=== PATIENT | female | born 1960 | race Caucasian/White ===

== ENCOUNTER 2018-02-22 18:36 | Emergency (ER) | payer OTHER | END 2018-02-22 20:30 | disposition left against medical advice (07) | LOC: M ED 18:36 | DX: Z53.29 Procedure and treatment not carried out because of patient's decision for other reasons (principal) ==

== ENCOUNTER → 2018-04-01 | Outpatient (CLI) | payer OTHER | LOC: M RAD 10:24 | DX: Z12.2 Encounter for screening for malignant neoplasm of respiratory organs (principal); Z87.891 Personal history of nicotine dependence | CPT/HCPCS: G0297 ==

== ENCOUNTER → 2018-12-20 | Outpatient (CLI) | payer MEDICARE, MEDICAID ==
[~2018-12-20] MED LIST: ALBU83IN; ATOR1TAB21; BREO1INH3; CART120C; HYDR12CA; OMEP40CA2
== END ==
LOC: M SLEEP HO 12:57
PROVIDERS: ATTEND Physician Assistant
DX: R06.83 Snoring (principal); R40.0 Somnolence

== ENCOUNTER → 2019-02-01 | Outpatient (CLI) | payer MEDICARE, MEDICAID ==
--- NOTE | 2019-02-04 07:12 | SLEEPCENT ---
DATE OF PROCEDURE: 02/01/2019 ORDERED BY: David Wasserman Nocturnal polysomnography was performed for evaluation of sleep physiology in this patient with a history of excessive somnolence and an inconclusive home test. She has comorbidities of hypertension and acid reflux disease. 7 hours and 38 minutes of data were reviewed. There were 378 minutes of sleep identified. Sleep latency was mildly prolonged at 25 minutes. Rapid eye movement (REM) sleep was delayed at 208 minutes. Sleep architecture was fair with 2 REM cycles noted. There were some periods of wake later in the study. Overall sleep efficiency was 83.7%. The electrocardiogram showed a sinus rhythm with an average heart rate of 90 beats per minute. Electroencephalogram (EEG) showed significant coarsening in the background. No focal events were seen and there were normal waveforms for wake and sleep stages. There were only 18 respiratory events identified of 10 seconds in duration or greater for an apnea-hypopnea index of 2.9. Snoring was noted, but the overall respiratory related arousal index was only 1.6. There were no oxygen desaturations. There was some limb activity, but no trains of events. Limb movement arousal index was borderline at 5.9. IMPRESSION: Normal nocturnal polysomnography with snoring.
== END ==
LOC: M SLEEP 20:00
PROVIDERS: ATTEND Physician Assistant
DX: R06.83 Snoring (principal)

== ENCOUNTER → 2019-07-31 | Outpatient (CLI) | payer MEDICARE, MEDICAID ==
--- NOTE | 2019-07-31 16:10 | REP ---
REASON: Tobacco abuse. COMPARISON: Multiple, the latest 04/01/2018. As per the protocol only lung window images were sent to the read station for interpretation. There is biapical pleural parenchymal scarring right greater than left and stable from 09/13/2017. There are no new abnormal nodules, masses, or opacities. Grossly the mediastinum and pulmonary royce are stable. Grossly the imaged upper abdomen and imaged osseous structures are stable. IMPRESSION:Stable chronic biapical changes as described above. There is no revised Fleischner's Society Criteria on the recommendation for followup of such findings. LUNG RADS [address] is recommended. Electronically Signed by Job Smith DO 07/31/2019 04:44 P
== END ==
LOC: M RAD 13:16
PROVIDERS: ATTEND Physician Assistant Medical
DX: Z12.2 Encounter for screening for malignant neoplasm of respiratory organs (principal); Z87.891 Personal history of nicotine dependence; J98.4 Other disorders of lung

== ENCOUNTER → 2021-04-18 | Outpatient (CLI) | payer MEDICARE, MEDICAID ==
[~2021-04-18] MED LIST changes: -OMEP40CA2; +OMEP40CA4
--- NOTE | 2021-04-18 11:31 | REP ---
INDICATION: NICOTINE DEPENDENCE. COMPARISON: Comparison CT studies of the chest are from 31 July 2019, 01 April 2018, 13 September 2017, and 12 September 2016.. TECHNIQUE: Dose reduction was performed utilizing CARE dose with automated adjustment of the kV and MAS according to patient size; iterative reconstruction, automated exposure control, as well as adaptive dose shielding. Helical scanning is acquired and 3 mm axial images are generated at lung window settings. 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 There are clips in the right upper quadrant. The right breast is surgically absent. There is no evidence of pleural effusion. Some vascular calcification is seen. Mild biapical pleuroparenchymal fibrosis is again seen right more so than left unchanged from prior studies. No pulmonary nodule or mass lesion is seen. No new infiltrate is noted. No endobronchial disease is appreciated. IMPRESSION: Lung RADS category 1 findings. Repeat screening exam suggested in 1 year <Electronically signed by Pedro Babcock > 04/18/21 1124
== END ==
LOC: M RAD 10:09
PROVIDERS: ATTEND Physician Assistant Medical
DX: Z12.2 Encounter for screening for malignant neoplasm of respiratory organs (principal); F17.210 Nicotine dependence, cigarettes, uncomplicated

== ENCOUNTER → 2022-12-11 | Outpatient (CLI) | payer MEDICARE, MEDICAID ==
[~2022-12-11] MED LIST changes: +ALBU2.5V10; -ALBU83IN
[2022-12-11 10:41] LABS: HEMATOCRIT 40.4 % (36.0-47.0); HEMOGLOBIN 13.3 g/dl (12.0-15.5); MEAN CORPUSCULAR HEMOGLOBIN 30.4 pg (27.0-33.0); MEAN CORPUSCULAR HGB CONC 32.9 g/dl (32.0-36.5); MEAN CORPUSCULAR VOLUME 92.4 fl (80.0-96.0); PLATELET COUNT, AUTOMATED 213 10^3/uL (150-450); RED BLOOD COUNT 4.37 10^6/uL (4.00-5.40); WHITE BLOOD COUNT 11.4 10^3/uL (4.0-10.0)
[2022-12-11 10:58] LABS: HEMOGLOBIN A1c 6.7 % (4.0-6.0)
[2022-12-11 11:13] LABS: CREATININE, URINE 150.2 MG/DL; MAU/CREAT RATIO 35.2 MCG/MG (0.0-30.0)
[2022-12-11 11:15] LABS: THYROID STIMULATING HORMONE 1.529 uIU/ML (0.55-4.78); TOTAL 25(OH) VITAMIN D 15.3 NG/ML (20.0-100.0)
[2022-12-11 11:16] LABS: FREE T4 1.12 NG/DL (0.89-1.76)
[2022-12-11 11:17] LABS: ALBUMIN 3.5 G/DL (3.2-5.2); ALKALINE PHOSPHATASE 98 U/L (46-116); ALT/SGPT 23 U/L (7.0-40); AST/SGOT < 8 U/L (<34); BILIRUBIN,TOTAL 1.1 MG/DL (0.3-1.2); BLOOD UREA NITROGEN 12 MG/DL (9-23); CALCIUM LEVEL 8.7 MG/DL (8.3-10.6); CARBON DIOXIDE LEVEL 24 MMOL/L (20-31); CHLORIDE LEVEL 111 MMOL/L (98-107); CHOLESTEROL LEVEL 167 MG/DL (<200); CHOLESTEROL RISK RATIO 3.48 (<5); CREATININE FOR GFR 0.59 MG/DL (0.55-1.30); GLOMERULAR FILTRATION RATE > 60.0 (>45); GLUCOSE, FASTING 109 MG/DL (74-106); HDL CHOLESTEROL 47.9 MG/DL (>40); LDL CHOLESTEROL 92.1 MG/DL (<100); NON-HDL-C 119 MG/DL; POTASSIUM SERUM 3.9 MMOL/L (3.5-5.1); SODIUM LEVEL 142 MMOL/L (136-145); TRIGLYCERIDES LEVEL 135 MG/DL (<150)
[2022-12-11 11:18] LABS: VITAMIN B12 LEVEL 259 PG/ML (211-911)
== END ==
LOC: M PLALAB 09:01
PROVIDERS: ATTEND Internal Medicine Hematology
DX: R91.8 Other nonspecific abnormal finding of lung field (principal); I25.10 Atherosclerotic heart disease of native coronary artery without angina pectoris; Z87.891 Personal history of nicotine dependence; Z79.899 Other long term (current) drug therapy

== ENCOUNTER → 2023-01-15 | Outpatient (CLI) | payer MEDICARE, MEDICAID | LOC: M WHC 16:20 | PROVIDERS: ATTEND Internal Medicine Hematology | DX: Z12.31 Encounter for screening mammogram for malignant neoplasm of breast (principal); Z85.3 Personal history of malignant neoplasm of breast; Z90.11 Acquired absence of right breast and nipple ==

== ENCOUNTER → 2023-03-02 | Outpatient (CLI) | payer MEDICARE, MEDICAID | LOC: M CARPUL 14:25 | PROVIDERS: ATTEND Internal Medicine Hematology | DX: I50.42 Chronic combined systolic (congestive) and diastolic (congestive) heart failure (principal) ==

== ENCOUNTER → 2023-05-11 | Outpatient (CLI) | payer MEDICARE, MEDICAID ==
[2023-05-11 14:23] LABS: BLOOD UREA NITROGEN 16 MG/DL (9-23); CARBON DIOXIDE LEVEL 27 MMOL/L (20-31); CHLORIDE LEVEL 106 MMOL/L (98-107); CREATININE FOR GFR 0.48 MG/DL (0.55-1.30); GLOMERULAR FILTRATION RATE > 60.0 (>45); GLUCOSE, FASTING 108 MG/DL (74-106); POTASSIUM SERUM 3.9 MMOL/L (3.5-5.1); SODIUM LEVEL 141 MMOL/L (136-145)
[2023-05-24 20:09] LABS: DOPAMINE PLASMA <30 pg/mL (0-48); EPINEPHRINE PLASMA 19 pg/mL (0-62); METANEPHRINE PLASMA 26.9 pg/mL (0.0-88.0); NOREPINEPHRINE PLASMA 284 pg/mL (0-874); NORMETANEPHRINE PLASMA 59.3 pg/mL (0.0-285.2)
== END ==
LOC: M LAB 12:24
PROVIDERS: ATTEND Internal Medicine Hematology
DX: I10 Essential (primary) hypertension (principal)

== ENCOUNTER → 2023-05-16 | Outpatient (CLI) | payer MEDICARE, MEDICAID ==
[~2023-05-16] MED LIST changes: +ISOVUE-370 76% 100ML VIAL As Ordered ONE
== END ==
LOC: M RAD 11:03
PROVIDERS: ATTEND Internal Medicine Hematology
DX: E27.8 Other specified disorders of adrenal gland (principal); I82.512 Chronic embolism and thrombosis of left femoral vein; R79.89 Other specified abnormal findings of blood chemistry
CPT/HCPCS: 71275; 93970; Q9967

== ENCOUNTER → 2023-06-19 | Outpatient (CLI) | payer MEDICARE, MEDICAID ==
[~2023-06-19] MED LIST changes: -ISOVUE-370 76% 100ML VIAL As Ordered ONE
[2023-06-19 17:19] LABS: HEMOGLOBIN A1c 6.4 % (4.0-6.0)
[2023-06-19 17:26] LABS: C REACTIVE PROTEIN QUANTITATIV < 0.40 MG/DL (<1.0); HEMATOCRIT 43.8 % (36.0-47.0); HEMOGLOBIN 14.4 g/dl (12.0-15.5); MEAN CORPUSCULAR HEMOGLOBIN 31.2 pg (27.0-33.0); MEAN CORPUSCULAR HGB CONC 32.9 g/dl (32.0-36.5); PLATELET COUNT, AUTOMATED 266 10^3/uL (150-450); RED BLOOD COUNT 4.61 10^6/uL (4.00-5.40); WHITE BLOOD COUNT 9.1 10^3/uL (4.0-10.0)
[2023-06-19 17:27] LABS: CREATININE, URINE 67.5 MG/DL; MAU/CREAT RATIO 5.9 MCG/MG (0.0-30.0)
[2023-06-19 17:32] LABS: ALBUMIN 3.8 G/DL (3.2-5.2); ALKALINE PHOSPHATASE 92 U/L (46-116); ALT/SGPT 37 U/L (7.0-40); AST/SGOT 22 U/L (<34); BILIRUBIN,TOTAL 0.7 MG/DL (0.3-1.2); BLOOD UREA NITROGEN 19 MG/DL (9-23); CALCIUM LEVEL 8.8 MG/DL (8.3-10.6); CARBON DIOXIDE LEVEL 30 MMOL/L (20-31); CHLORIDE LEVEL 102 MMOL/L (98-107); CHOLESTEROL LEVEL 197 MG/DL (<200); CHOLESTEROL RISK RATIO 4.79 (<5); CREATININE FOR GFR 0.57 MG/DL (0.55-1.30); FREE T4 1.05 NG/DL (0.89-1.76); GLOMERULAR FILTRATION RATE > 60.0 (>45); GLUCOSE, FASTING 145 MG/DL (74-106); HDL CHOLESTEROL 41.1 MG/DL (>40); LDL CHOLESTEROL 113.9 MG/DL (<100); NON-HDL-C 155.9 MG/DL; POTASSIUM SERUM 3.4 MMOL/L (3.5-5.1); SODIUM LEVEL 140 MMOL/L (136-145); THYROID STIMULATING HORMONE 1.781 uIU/ML (0.55-4.78); TOTAL 25(OH) VITAMIN D 76.6 NG/ML (20.0-100.0); TOTAL PROTEIN 6.6 G/DL (5.7-8.2); TRIGLYCERIDES LEVEL 210 MG/DL (<150); VITAMIN B12 LEVEL 283 PG/ML (211-911)
== END ==
LOC: M PLALAB 12:03
PROVIDERS: ATTEND Internal Medicine Hematology
DX: I50.42 Chronic combined systolic (congestive) and diastolic (congestive) heart failure (principal); Z79.899 Other long term (current) drug therapy

== ENCOUNTER → 2023-07-04 | Outpatient (CLI) | payer MEDICARE ==
[~2023-07-04] MED LIST changes: +ISOVUE-370 76% 100ML VIAL As Ordered ONE
== END ==
LOC: M RAD 08:41
PROVIDERS: ATTEND Internal Medicine Hematology
DX: E27.8 Other specified disorders of adrenal gland (principal)
CPT/HCPCS: 74160; Q9967

== ENCOUNTER 2023-12-18 12:37 | Emergency (ER) | payer MEDICARE, MEDICAID ==
[~2023-12-18] VITALS: Ht 157.5 cm; Wt 67.9 kg
[~2023-12-18 12:37] MED LIST changes: +AMLO1TAB24 PO; -ATOR1TAB21; +ATOR1TAB21 PO; +BISO10TA14 PO; +COMBAER6; +ERGO500029 PO; +FLUT1BLS8 INH; +HYDR-3490 PO; -ISOVUE-370 76% 100ML VIAL As Ordered ONE; +LOSA100T46 PO; +MONT10TA97 PO; -OMEP40CA4; +OMEP40CA4 PO
[2023-12-18 13:37] VITALS: BP 109/63; TEMP 98.8; O2SAT 98
== END 2023-12-18 14:29 | disposition left against medical advice (07) ==
LOC: M ED 12:37
DX: Z53.21 Procedure and treatment not carried out due to patient leaving prior to being seen by health care provider (principal)

== ENCOUNTER 2024-01-23 09:16 | Day surgery (SDC) | payer MEDICARE, MEDICAID ==
[~2024-01-23] VITALS: Ht 157.5 cm; Wt 71.2 kg
[~2024-01-23 09:16] MED LIST changes: +NS 1,000 ML IV ONE; +[UNRECOGNIZED DRUG - OTHER]
[2024-01-23] MEDS ORDERED: propofoL 200 MG/20 ML VIAL As Ordered ONE (10:33)
[2024-01-23] MEDS ORDERED: LIDOCAINE 2% 100MG/5ML SDV (FOR ANES.) As Ordered ONE (10:33)
[2024-01-23] MEDS ORDERED: fentaNYL 100 MCG/2 ML INJECTION As Ordered ONE (10:34)
[2024-01-23 11:40] VITALS: BP 128/76; O2SAT 99
== END 2024-01-23 11:44 | disposition home or self-care (01) ==
LOC: M OPP 09:16
PROVIDERS: ATTEND Surgery
DX: Z12.11 Encounter for screening for malignant neoplasm of colon (principal); Z12.12 Encounter for screening for malignant neoplasm of rectum; K64.0 First degree hemorrhoids; R10.13 Epigastric pain; K29.70 Gastritis, unspecified, without bleeding; Z90.49 Acquired absence of other specified parts of digestive tract; Z85.3 Personal history of malignant neoplasm of breast; Z87.19 Personal history of other diseases of the digestive system; I10 Essential (primary) hypertension; J44.9 Chronic obstructive pulmonary disease, unspecified; Z79.899 Other long term (current) drug therapy; Z79.51 Long term (current) use of inhaled steroids; Z92.21 Personal history of antineoplastic chemotherapy; Z92.3 Personal history of irradiation; Z90.711 Acquired absence of uterus with remaining cervical stump; Z88.0 Allergy status to penicillin; Z91.030 Bee allergy status; Z87.891 Personal history of nicotine dependence
CPT/HCPCS: 43239; 88305; G0121; J3010

== ENCOUNTER → 2024-02-25 | Outpatient (CLI) | payer MEDICARE, MEDICAID ==
[~2024-02-25] MED LIST changes: -NS 1,000 ML IV ONE
[2024-02-25 15:53] LABS: BASO # 0.1 10^3/uL (0.0-0.2); BASO % 0.5 % (0.0-1.0); EOS # 0.2 10^3/uL (0.0-0.5); HEMATOCRIT 42.4 % (36.0-47.0); HEMOGLOBIN 14.2 g/dl (12.0-15.5); LYMPH # 2.8 10^3/uL (1.5-5.0); LYMPH % 28.2 % (24.0-44.0); MEAN CORPUSCULAR HEMOGLOBIN 31.4 pg (27.0-33.0); MEAN CORPUSCULAR HGB CONC 33.5 g/dl (32.0-36.5); MEAN CORPUSCULAR VOLUME 93.8 fl (80.0-96.0); MONO # 0.7 10^3/uL (0.0-0.8); MONO % 7.4 % (2.0-8.0); NEUTROPHILS # 6.1 10^3/uL (1.5-8.5); NEUTROPHILS % 61.6 % (36.0-66.0); PLATELET COUNT, AUTOMATED 255 10^3/uL (150-450); RED BLOOD COUNT 4.52 10^6/uL (4.00-5.40); WHITE BLOOD COUNT 9.9 10^3/uL (4.0-10.0)
[2024-02-25 15:58] LABS: ALBUMIN 3.6 G/DL (3.2-5.2); ALKALINE PHOSPHATASE 77 U/L (46-116); ALT/SGPT 47 U/L (7.0-40); AST/SGOT 34 U/L (<34); BILIRUBIN,TOTAL 0.7 MG/DL (0.3-1.2); BLOOD UREA NITROGEN 16 MG/DL (9-23); CALCIUM LEVEL 9.1 MG/DL (8.3-10.6); CARBON DIOXIDE LEVEL 29 MMOL/L (20-31); CHLORIDE LEVEL 105 MMOL/L (98-107); CHOLESTEROL LEVEL 206 MG/DL (<200); CHOLESTEROL RISK RATIO 4.14 (<5); CREATININE FOR GFR 0.52 MG/DL (0.55-1.30); GLOMERULAR FILTRATION RATE > 60.0 (>45); GLUCOSE, FASTING 145 MG/DL (74-106); HDL CHOLESTEROL 49.7 MG/DL (>40); LDL CHOLESTEROL 104.9 MG/DL (<100); NON-HDL-C 156.3 MG/DL; POTASSIUM SERUM 3.7 MMOL/L (3.5-5.1); SODIUM LEVEL 140 MMOL/L (136-145); TOTAL PROTEIN 6.4 G/DL (5.7-8.2); TRIGLYCERIDES LEVEL 257 MG/DL (<150)
[2024-02-25 15:59] LABS: THYROID STIMULATING HORMONE 2.857 uIU/ML (0.55-4.78); TOTAL 25(OH) VITAMIN D 53.4 NG/ML (20.0-100.0)
[2024-02-25 16:00] LABS: FREE T4 1.11 NG/DL (0.89-1.76); VITAMIN B12 LEVEL 500 PG/ML (211-911)
[2024-02-25 16:32] LABS: HEMOGLOBIN A1c 8.2 % (4.0-6.0)
== END ==
LOC: M PLALAB 13:09
PROVIDERS: ATTEND Internal Medicine Hematology
DX: I50.42 Chronic combined systolic (congestive) and diastolic (congestive) heart failure (principal); E11.9 Type 2 diabetes mellitus without complications; Z79.899 Other long term (current) drug therapy

== ENCOUNTER → 2024-02-29 | Outpatient (CLI) | payer MEDICARE, MEDICAID ==
[~2024-02-29] MED LIST changes: +E-Z-GAS II EFFERVESCENT PACKET (SODIUM BICARB./CITRIC ACID/SIMETHICONE) As Ordered ONE; +E-Z-HD 98% w/w 340GM SUSP BTL As Ordered ONE; +E-Z-PAQUE 96% w/w SUSP 176GM BTL As Ordered ONE
== END ==
LOC: M RAD 08:30
PROVIDERS: ATTEND Physician Assistant
DX: R13.10 Dysphagia, unspecified (principal); R93.3 Abnormal findings on diagnostic imaging of other parts of digestive tract

== ENCOUNTER → 2024-05-19 | Outpatient (CLI) | payer MEDICARE, MEDICAID ==
[~2024-05-19] MED LIST changes: -E-Z-GAS II EFFERVESCENT PACKET (SODIUM BICARB./CITRIC ACID/SIMETHICONE) As Ordered ONE; -E-Z-HD 98% w/w 340GM SUSP BTL As Ordered ONE; -E-Z-PAQUE 96% w/w SUSP 176GM BTL As Ordered ONE
== END ==
LOC: M RAD 08:11
PROVIDERS: ATTEND Physician Assistant
DX: Z12.2 Encounter for screening for malignant neoplasm of respiratory organs (principal); Z87.891 Personal history of nicotine dependence